=== PATIENT | female | born 1960 | race Caucasian/White ===

== ENCOUNTER → 2018-07-11 | Outpatient (CLI) | payer OTHER ==
[~2018-07-11] MED LIST: CALCIUM 500 +1 EAC4 PO; CLARITIN10 M2 PO; FISH OIL 1,0001 EAC5 PO; GYNODIOL1 MG PO; LISINOPRIL5 MG PO; METOPROLOL SUCC25 M1 PO; MOBIC15 MG PO; PROVERA2.5 MG PO; RED YEAST RICE600 MG PO; VITAMIN D31000 UNI2 PO
--- NOTE | 2018-07-12 17:22 | TST ---
[facility] [address] [place] [address] TREADMILL STRESS TEST Name: DREW PINA Room: [facility]#: [id number] Admission: 07/11/18 Attend Phys: Carola Knight DO Discharge: Date of : 60 Date of Service: 07/11/18 1639 Report #: [id number] THIS REPORT FOR: //name// CC: Carola Khanna MD [facility] PROCEDURE: Standard Cruz protocol exercise stress test. INDICATION: Left arm pain. CORONARY HISTORY: None. CARDIAC RISK FACTORS: Age greater than 55 and family history of coronary artery disease. CARDIAC MEDICATIONS: Losartan. INTERPRETATION: The patient exercised per standard Cruz protocol for 8 minutes and 3 seconds. The resting blood pressure was 129/91 mmHg with resting pulse rate of 99 beats per minute. At peak stress, the blood pressure was 213/91 mmHg with a peak stress heart rate of 160 beats per minute. Recovery blood pressure was 157/93 mmHg with a recovery heart rate of 110 beats per minute. The patient achieved 100% of her maximum predicted heart rate and energy expenditure equivalent to 10.16 METS. Baseline 12-lead EKG shows a sinus rhythm with no significant ST or T-wave abnormality. EKGs obtained during and post-exercise showed sinus rhythm and sinus tachycardia with no significant ST or T-wave changes when compared to baseline. Exercise was discontinued due to fatigue. The patient did not have any chest discomfort. IMPRESSIONS: 1. Clinical response: Nonischemic. 2. EKG response: Nonischemic. CONCLUSION: This standard Cruz protocol exercise stress test shows no EKG or clinical evidence to suggest ischemia. This is a low-risk study. <ELECTRONICALLY SIGNED> By: Gerardo Park MD, FACC 07/12/18 1722 1639 1211 Gerardo Park MD, FACC /nt
== END ==
LOC: M.CRD 14:44
DX: M79.602 Pain in left arm (principal); R07.89 Other chest pain; E78.5 Hyperlipidemia, unspecified; I10 Essential (primary) hypertension; Z79.899 Other long term (current) drug therapy; Z82.49 Family history of ischemic heart disease and other diseases of the circulatory system